=== PATIENT | male | born 1975 | race Caucasian/White ===

== ENCOUNTER 2022-04-25 00:31 | Emergency (ER) | payer SELFPAY ==
[~2022-04-25] VITALS: Ht 182.9 cm; Wt 69.0 kg
[2022-04-25] MEDS ORDERED: LEVO500T90 PO (09:35)
[2022-04-25] MEDS ORDERED: KETOROLAC 30MG/ML VIAL IM ONE (09:45)
[2022-04-25 09:54] VITALS: BP 112/74
[2022-04-25 10:13] LABS: CLARITY URINE CLOUDY (CLEAR); COLOR URINE DARK YELLOW (YELLOW); KETONES URINE TRACE (NEGATIVE); LEUKOCYTE ESTERASE URINE 2+ (NEGATIVE); NITRITE URINE POSITIVE (NEGATIVE); OCCULT BLOOD URINE 2+ (NEGATIVE); PH URINE 5.5 (4.5-8.0); PROTEIN URINE 1+ (NEGATIVE); SPECIFIC GRAVITY URINE 1.031 (1.005-1.030)
== END 2022-04-25 10:02 | disposition home or self-care (01) ==
LOC: ER 00:31
DX: N45.1 Epididymitis (principal)
CPT/HCPCS: 76870; 81003; 87077; 87086; 87186; 93976; 96372; 99284; J1885

== ENCOUNTER 2024-07-12 23:17 | Emergency (ER) | payer SELFPAY ==
[~2024-07-12] VITALS: Ht 177.8 cm; Wt 76.1 kg
[~2024-07-12 23:17] MED LIST: LEVO-65 PO
[2024-07-12 23:38] VITALS: O2SAT 100
[2024-07-12] MEDS ORDERED: TETANUS, DIPHTHERIA, PERTUSSIS VAC/PF 0.5ML (>10YR OLD) IM ONE (23:45)
[2024-07-12] MEDS ORDERED: IBUPROFEN 600MG TABLET PO ONE (23:45)
[2024-07-12] MEDS: LIDOCAINE HCL/PF 1% 10 MG/ML 5ML VIAL INFIL ONE (23:45)
[2024-07-12] MEDS ORDERED: BO1 TP (23:47)
[2024-07-12] MEDS ORDERED: AMOX1TAB16 MT (23:47)
[2024-07-12] MEDS ORDERED: IBUP-2029 MT (23:47)
[2024-07-13] MEDS ORDERED: HYDR-4001 MT (01:04)
[2024-07-13] MEDS: IBUPROFEN 600MG TABLET PO NR (01:43)
[2024-07-13 01:44] VITALS: BP 140/80; PULSE 98; RESP 16; TEMP 36.78072; O2SAT 100
[2024-07-13] MEDS: TETANUS, DIPHTHERIA, PERTUSSIS VAC/PF 0.5ML (>10YR OLD) IM ONE (01:44)
== END 2024-07-13 01:46 | disposition home or self-care (01) ==
LOC: ER 23:39
DX: S61.412A Laceration without foreign body of left hand, initial encounter (principal); Z79.899 Other long term (current) drug therapy; W54.0XXA Bitten by dog, initial encounter; Y93.89 Activity, other specified; Y92.89 Other specified places as the place of occurrence of the external cause; Y99.8 Other external cause status
CPT/HCPCS: 12002; 73110; 73130; 90471; 90715; 99284

== ENCOUNTER 2024-07-16 12:34 | Emergency (ER) | payer SELFPAY ==
[~2024-07-16] VITALS: Ht 172.7 cm; Wt 81.0 kg
[~2024-07-16 12:34] MED LIST changes: +AMOX1TAB16 MT; +BO1 TP; +HYDR-4001 MT; +IBUP-2029 MT
[2024-07-16 12:40] VITALS: BP 132/80; PULSE 84; RESP 18; TEMP 98.3; O2SAT 99
== END 2024-07-16 13:36 | disposition home or self-care (01) ==
LOC: ER 12:34
DX: S60.511A Abrasion of right hand, initial encounter (principal); W54.0XXA Bitten by dog, initial encounter; Y93.89 Activity, other specified; Y92.89 Other specified places as the place of occurrence of the external cause; Y99.8 Other external cause status
CPT/HCPCS: 99281